=== PATIENT | male | born 1965 | race African-American/Black ===

== ENCOUNTER 2019-12-10 17:02 | Emergency (ER) | payer SELFPAY ==
--- NOTE | 2019-12-10 18:38 | ULT ---
LEFT LOWER EXTREMITY VENOUS DUPLEX EXAM: Indications: Left lower extremity pain and edema. FINDINGS: Deep veins of left lower extremity evaluated with ultrasound and doppler. Color doppler with spectral analysis and compressions study performed. Deep veins of left lower extremity show normal blood flow and compression. No evidence of DVT. IMPRESSION: No evidence of left lower extremity DVT. POS: [facility]
== END 2019-12-10 20:15 | disposition home or self-care (01) ==
LOC: ERS 17:02
DX: M79.605 Pain in left leg (principal); I10 Essential (primary) hypertension; K74.60 Unspecified cirrhosis of liver; F20.9 Schizophrenia, unspecified; F31.9 Bipolar disorder, unspecified; F41.9 Anxiety disorder, unspecified; F17.210 Nicotine dependence, cigarettes, uncomplicated; M19.90 Unspecified osteoarthritis, unspecified site; Z79.899 Other long term (current) drug therapy

== ENCOUNTER 2020-10-22 03:15 | Emergency (ER) | payer SELFPAY ==
[2020-10-22] MEDS ORDERED: Ketorolac Tromethamine 30 MG/ML VIAL ONE (03:32)
[2020-10-22 03:43] LABS: #Basophils 0.1 thou/uL (0.0-0.2); #Eosinphils 0.1 thou/uL (0.0-0.7); #Lymphocytes 3.3 thou/uL (1.20-3.40); #Monocytes 0.7 thou/uL (0.11-0.59); #Neutrophils 2.6 thou/uL (1.40-6.50); %Basophils 1.9 % (0.0-1.0); %Eosinophils 2.1 % (0.0-10.0); %Lymphocytes 48.1 % (21.0-51.0); %Monocytes 10.2 % (0.0-10.0); %Neutrophils 37.7 % (42.0-75.0); Hemoglobin 13.5 g/dL (14.0-18.0); Mean Corpuscular HGB CONC 33.9 g/dL (32.0-36.0); Mean Corpuscular Hemoglobin 30.1 pg (27.0-31.0); Mean Corpuscular Volume 88.6 fL (78.0-98.0); Mean Platelet Volume 7.2 fL (7.4-10.4); Platelet Count 213 thou/uL (130-400); Red Blood Cell (RBC) Count 4.49 mill/uL (4.70-6.10); White Blood Cell (WBC) Count 6.8 thou/uL (4.8-10.8)
[2020-10-22 04:08] LABS: ALT (SGPT) 64 U/L (8-55); AST (SGOT) 61 U/L (5-34); Albumin 3.5 g/dL (3.5-5.0); Alkaline Phosphatase 66 U/L (40-110); Anion Gap 17 mmol/L (10-20); BUN (Urea Nitrogen) 16 mg/dL (8.4-25.7); Bilirubin, Total 0.2 mg/dL (0.2-1.2); Calc. Creatinine Clearance 0 mL/min (70-130); Carbon Dioxide 18 mmol/L (22-29); Chloride 108 mmol/L (98-107); Glucose 109 mg/dL (70-105); Lipase 56 U/L (8-78); Potassium 3.7 mmol/L (3.5-5.1); Protein, Total 6.5 g/dL (6.0-8.3); Sodium 139 mmol/L (136-145)
[2020-10-22 04:29] LABS: CKMB 2.3 ng/mL (0-6.6)
[2020-10-22 06:10] LABS: Troponin I 0.045 ng/mL (< 0.028)
--- NOTE | 2020-10-22 07:58 | RAD ---
CHEST 1 VIEW: Date: 10/22/2020 COMPARISON: 08/23/2019, 09/05/2018. HISTORY: Tachycardia. Chest pain. FINDINGS: Redemonstration of situs inversus. Normal cardiac silhouette. Pulmonary vessels and hilum are normal. Costophrenic angles are clear. No mass or consolidation. No pneumothorax or acute osseous abnormalit ies. IMPRESSION: No acute cardiopulmonary process. POS: PPP
== END 2020-10-22 06:25 | disposition home or self-care (01) ==
LOC: ERS 03:15
DX: R07.89 Other chest pain (principal); I10 Essential (primary) hypertension; M19.90 Unspecified osteoarthritis, unspecified site; F17.210 Nicotine dependence, cigarettes, uncomplicated
CPT/HCPCS: 36415; 71045; 80053; 82553; 83690; 84484; 85025; 93005; 94760; 96374; J1885

== ENCOUNTER 2020-12-01 21:18 | Inpatient (IN) | payer BC, SELFPAY ==
[2020-12-01 22:32] LABS: Troponin I 0.044 ng/mL (< 0.028)
[2020-12-02] MEDS: Acetaminophen 325 MG TAB PO PRN ×3 (01:10→15:51)
[2020-12-02 01:17] VITALS: BMI 25.3
[2020-12-02] MEDS ORDERED: Aspirin 325 MG TAB PO SCH (03:00)
[2020-12-02] MEDS ORDERED: Lorazepam 1 MG TAB PO PRN (03:40)
[2020-12-02 05:22] LABS: Cardiac Risk 1.9 (Less than 4.5); Magnesium 1.8 mg/dL (1.6-2.6)
[2020-12-02 05:27] LABS: Troponin I 0.054 ng/mL (< 0.028)
[2020-12-02] MEDS: Aspirin Chewable 81 MG TAB PO SCH (08:08)
[2020-12-02] MEDS ORDERED: Iopamidol-370 76% 500 ML 1 ML ONE (11:02)
[2020-12-02] MEDS ORDERED: Amlodipine 5 MG TAB PO SCH (16:15)
[2020-12-02] MEDS: Sodium Chloride 0.9% 1,000 ML IV SCH (16:31)
[2020-12-02] MEDS: Piperacillin/Tazobactam 3.375 GM in Sodium Chloride 0.9% 100 ML IVPB SCH ×2 (18:27→23:57)
[2020-12-02] MEDS: Atorvastatin Calcium 40 MG TAB PO SCH (21:34)
[2020-12-03] MEDS: Sodium Chloride 0.9% 1,000 ML IV SCH ×4 (04:14→18:43)
[2020-12-03 05:16] LABS: ALT (SGPT) 47 U/L (8-55); AST (SGOT) 31 U/L (5-34); Albumin 3.2 g/dL (3.5-5.0); Alkaline Phosphatase 58 U/L (40-110); Anion Gap 14 mmol/L (10-20); BUN (Urea Nitrogen) 10 mg/dL (8.4-25.7); Bilirubin, Total 0.3 mg/dL (0.2-1.2); Calc. Creatinine Clearance 90 mL/min (70-130); Calcium 8.2 mg/dL (7.8-10.44); Carbon Dioxide 20 mmol/L (22-29); Chloride 104 mmol/L (98-107); Globulin 2.8 g/dL (2.4-3.5); Glucose 117 mg/dL (70-105); Potassium 3.3 mmol/L (3.5-5.1); Sodium 135 mmol/L (136-145)
[2020-12-03 05:17] LABS: Band 7 % (5-11); Hemoglobin 13.5 g/dL (14.0-18.0); Lymphocytes 14 % (21-51); MDiff Complete? YES; Mean Corpuscular HGB CONC 31.3 g/dL (32.0-36.0); Mean Corpuscular Hemoglobin 28.2 pg (27.0-31.0); Mean Corpuscular Volume 90.2 fL (78.0-98.0); Mean Platelet Volume 7.4 fL (7.4-10.4); Monocytes 7 % (0-10); Neutrophil 72 % (42-75); Platelet Count 179 thou/uL (130-400); Platelet Morphology Comment Appears Adequate; RBC Distribution Width 12.2 % (11.5-14.5); White Blood Cell (WBC) Count 9.3 thou/uL (4.8-10.8)
[2020-12-03] MEDS: Piperacillin/Tazobactam 3.375 GM in Sodium Chloride 0.9% 100 ML IVPB SCH ×3 (05:50→18:21)
[2020-12-03] MEDS: Acetaminophen 325 MG TAB PO PRN ×2 (05:57)
[2020-12-03] MEDS: Aspirin Chewable 81 MG TAB PO SCH (08:36)
[2020-12-03] MEDS: Amlodipine 5 MG TAB PO SCH (08:36)
[2020-12-03] MEDS ORDERED: Morphine 2 MG/ML VIAL SLOW IVP SCH (10:15)
[2020-12-03] MEDS: Morphine 2 MG/ML VIAL SLOW IVP PRN (18:40)
[2020-12-03] MEDS: Atorvastatin Calcium 40 MG TAB PO SCH (20:44)
[2020-12-04] MEDS: Piperacillin/Tazobactam 3.375 GM in Sodium Chloride 0.9% 100 ML IVPB SCH ×3 (00:21→12:05)
[2020-12-04] MEDS: Sodium Chloride 0.9% 1,000 ML IV SCH ×2 (05:22→12:05)
[2020-12-04 05:23] LABS: #Eosinphils 0.2 thou/uL (0.0-0.7); #Monocytes 0.8 thou/uL (0.11-0.59); #Neutrophils 4.3 thou/uL (1.40-6.50); %Basophils 0.5 % (0.0-1.0); %Eosinophils 2.8 % (0.0-10.0); %Lymphocytes 27.6 % (21.0-51.0); %Monocytes 10.9 % (0.0-10.0); %Neutrophils 58.2 % (42.0-75.0); Hemoglobin 12.4 g/dL (14.0-18.0); Mean Corpuscular HGB CONC 32.1 g/dL (32.0-36.0); Mean Corpuscular Volume 90.4 fL (78.0-98.0); Mean Platelet Volume 7.3 fL (7.4-10.4); Platelet Count 165 thou/uL (130-400); RBC Distribution Width 11.9 % (11.5-14.5); Red Blood Cell (RBC) Count 4.28 mill/uL (4.70-6.10); White Blood Cell (WBC) Count 7.3 thou/uL (4.8-10.8)
[2020-12-04] MEDS: Morphine 2 MG/ML VIAL SLOW IVP PRN (05:26)
[2020-12-04 05:51] LABS: ALT (SGPT) 39 U/L (8-55); AST (SGOT) 40 U/L (5-34); Albumin 2.9 g/dL (3.5-5.0); Alkaline Phosphatase 47 U/L (40-110); Anion Gap 8 mmol/L (10-20); BUN (Urea Nitrogen) 6 mg/dL (8.4-25.7); Bilirubin, Total 0.2 mg/dL (0.2-1.2); Calc. Creatinine Clearance 97 mL/min (70-130); Calcium 7.8 mg/dL (7.8-10.44); Carbon Dioxide 26 mmol/L (22-29); Chloride 108 mmol/L (98-107); Globulin 2.5 g/dL (2.4-3.5); Glucose 119 mg/dL (70-105); Potassium 3.3 mmol/L (3.5-5.1); Protein, Total 5.4 g/dL (6.0-8.3); Sodium 139 mmol/L (136-145)
[2020-12-04 08:28] VITALS: TEMP 98.4
[2020-12-04] MEDS: Amlodipine 5 MG TAB PO SCH (08:54)
[2020-12-04] MEDS: Aspirin Chewable 81 MG TAB PO SCH (08:54)
[2020-12-04] MEDS ORDERED: Potassium Chloride 20 MEQ TAB PO SCH (11:00)
[2020-12-04 12:04] VITALS: BP 144/90
[2020-12-04] MEDS: Acetaminophen 325 MG TAB PO PRN (12:04)
== END 2020-12-04 16:40 | disposition home or self-care (01) | DRG 372 ==
LOC: ERS 21:18 → OBSVTOIN 23:12 → 2SW 23:12
PROVIDERS: ADMIT Internal Medicine; ATTEND Internal Medicine
DX: A04.5 Campylobacter enteritis (principal); E87.1 Hypo-osmolality and hyponatremia; I10 Essential (primary) hypertension; F14.129 Cocaine abuse with intoxication, unspecified; E87.6 Hypokalemia; F10.10 Alcohol abuse, uncomplicated; R07.89 Other chest pain; E88.09 Other disorders of plasma-protein metabolism, not elsewhere classified; F17.200 Nicotine dependence, unspecified, uncomplicated; Z20.822 Contact with and (suspected) exposure to COVID-19
CPT/HCPCS: 36415; 71275; 74177; 80053; 80061; 82274; 82607; 82746; 83036; 83630; 83735; 84145; 84443; 84484; 85025; 85652; 86140; 87040; 87045; 87046; 87324; 87427; 87449; 93005; 93306; 94760; G0378; J2270; J2543; J3490; Q9967

== ENCOUNTER 2025-05-10 12:52 | Emergency (ER) | payer BC | END 2025-05-10 13:39 | disposition home or self-care (01) | LOC: ERS 12:52 | DX: L72.0 Epidermal cyst (principal); I10 Essential (primary) hypertension; F17.210 Nicotine dependence, cigarettes, uncomplicated | CPT/HCPCS: 99282 ==